=== PATIENT | female | born 1945 | race Caucasian/White ===

== ENCOUNTER → 2016-06-12 | Outpatient (CLI) | payer OTHER ==
[~2016-06-12] MED LIST: CALCIUM + VITA1 EACH PO; CALCIUM 500 +1 EAC6 PO; CETIRIZINE HCL10 MG PO; CRESTOR40 MG PO; CYMBALTA PO; DESYREL150 M1 PO; DESYREL50 M1 PO; DULOXETINE HCL60 MG PO; FLUTICASONE; GRALISE1 EACH PO; HYDROCODON-ACE1 EAC4 PO; HYDROCODON-ACE1 EAC5 PO; HYDROCODONE-APA1 T51 PO; LIPITOR80 MG PO; LYRICA PO; MEDROL2 MG PO; MELOXICAM15 MG; MELOXICAM15 MG PO; NEURONTIN600 MG PO; OMEPRAZOLE20 M1 PO; OSCAL 500 MG; PRILOSEC20 MG PO; REQUIP2 MG PO; SERTRALINE HCL100 MG PO; TIZANIDINE HCL4 M1 PO; ZANAFLEX4 M1 PO
== END | disposition home or self-care (01) ==
LOC: CLAB 06:01
DX: R79.89 Other specified abnormal findings of blood chemistry (principal)
CPT/HCPCS: 36415; 82533

== ENCOUNTER → 2016-09-24 | Outpatient (CLI) | payer OTHER | END | disposition home or self-care (01) | LOC: SLAB 11:22 | DX: E83.51 Hypocalcemia (principal) | CPT/HCPCS: 36415; 82310 ==

== ENCOUNTER → 2016-11-19 | Outpatient (CLI) | payer OTHER ==
[2016-11-19 11:38] LABS: HEMATOCRIT 43.3 % (35.0-45.0); HEMOGLOBIN 14.6 gm/dL (12.0-16.0); MEAN CELL VOLUME 95.7 FL (83-96); MEAN CORPUSCULAR HEMOGLOBIN 32.2 PG (28-34); MEAN CORPUSCULAR HGB CONC 33.6 g/dL (30-36); MEAN PLATELET VOLUME 7.7 FL (6.5-11.5); RED BLOOD COUNT 4.52 X10e (3.90-5.30); RED CELL DISTRIBUTION WIDTH 14.6 % (11.0-15.5); WHITE BLOOD COUNT 9.2 X10e3 (4.0-10.5)
[2016-11-19 12:14] LABS: CALCIUM SERUM 9.5 mg/dL (8.4-10.2); CREATININE SERUM 1.1 mg/dL (0.6-1.4); GLOM FILT RATE Estimated 50.8 mL/min (>60); POTASSIUM 4.4 mmol/L (3.5-5.1)
[2016-11-19 12:43] LABS: THYROID STIMULATING HORMONE 0.01 uIU/ml (0.34-5.60)
[2016-11-19 12:50] LABS: FREE THYROXIN (T4) 1.76 ng/dL (0.58-1.64)
== END | disposition home or self-care (01) ==
LOC: CLAB 11:03
PROVIDERS: Specialist
DX: E04.1 Nontoxic single thyroid nodule (principal)
CPT/HCPCS: 36415; 80048; 84439; 84443; 85027